=== PATIENT | male | born 1975 | race Caucasian/White ===

== ENCOUNTER 2025-02-23 09:35 | Day surgery (SDC) | payer BC ==
[2025-02-19 12:43] VITALS: BMI 31.3
[2025-02-23] MEDS: IV FLUID CONTINUATION 1,000 ML IV ONE (10:10)
[2025-02-23 10:16] VITALS: RESP 16; TEMP 97.4
[2025-02-23] MEDS ORDERED: LIDOCAINE 1% INJ 10MG/ML (20 ML MDV) ONE (10:45)
[2025-02-23] MEDS ORDERED: PROPOFOL 10 MG/ML 20 ML VIAL IV ONE (10:45)
--- NOTE | 2025-02-23 10:52 | P.GSHP ---
History of Present Illness H&P Date: 02/23/25 Chief Complaint: Colon cancer screening 42-year-old male here for colonoscopy. He has not had 1 previously. No bowel complaints. No family history of colon cancer. Past Medical History Past Medical History: No Reported History History of Any Multi-Drug Resistant Organisms: None Reported Past Surgical History: Orthopedic Surgery Additional Past Surgical History / Comment(s): R shoulder surgery, wisdom teeth Past Anesthesia/Blood Transfusion Reactions: No Reported Reaction Smoking Status: Never smoker - Past Family History Mother Family Medical History: Cancer Medications and Allergies Home Medications Medication Instructions Recorded Confirmed Type Fish Oil/Dha/Epa [Fish Oil 1,200 1 each PO DAILY 02/19/25 02/23/25 History mg Fish Oil] Fluticasone Nasal [place] [Flonase 2 spray EA NOSTRIL DAILY 02/19/25 02/23/25 History Nasal [place]] Loratadine [Claritin] 10 mg PO DAILY 02/19/25 02/23/25 History Multivitamins, Thera [Multivitamin 1 tab PO DAILY 02/19/25 02/23/25 History (formulary)] Omeprazole [PriLOSEC] 20 mg PO AC-BRKFST 02/19/25 02/23/25 History lisinopriL [Zestril] 20 mg PO DAILY 02/19/25 02/23/25 History Allergies Allergy/AdvReac Type Severity Reaction Status Date / Time No Known Allergies Allergy Verified 02/23/25 10:11 Surgical - Exam Vital Signs Temp Pulse Resp BP Pulse Ox 97.4 F L 85 16 132/89 99 02/23/25 10:13 02/23/25 10:13 02/23/25 10:13 02/23/25 10:13 02/23/25 10:13 Physical exam: General: Well-developed, well-nourished HEENT: Normocephalic, sclerae nonicteric Abdomen: Nontender, nondistended Extremities: No edema Neuro: Alert and oriented Assessment and Plan (1) Colon cancer screening Narrative/Plan: Will proceed with colonoscopy at this time. Current Visit: Yes Status: Acute Code(s): Z12.11 - ENCOUNTER FOR SCREENING FOR MALIGNANT NEOPLASM OF COLON SNOMED Code(s): 650985938
--- NOTE | 2025-02-23 11:04 | P.PCN ---
Date of Procedure: 02/23/25 Procedure(s) Performed: PREOPERATIVE DIAGNOSIS: Colon cancer screening POSTOPERATIVE DIAGNOSIS: Normal exam PROCEDURE: Colonoscopy ANESTHESIA: MAC SURGEON: Alberto Tamez M.D. SPECIMENS: None ENDOSCOPIC PROCEDURE: The patient was placed on the endoscopy table in the left decubitus position. The Olympus colonoscope was inserted into the anus and passed under direct visualization to the base of the cecum. The appendiceal orifice was visualized. From that point the scope was slowly withdrawn inspecti ng all surfaces carefully. There were no neoplastic inflammatory or polypoid lesions throughout the cecum, ascending, transverse, descending, sigmoid and rectum. There was no visible diverticulosis noted. Digital rectal examination was normal. The patient was taken to the recovery room in stable condition per anesthesia guidelines. RECOMMENDATIONS: Resume diet. Repeat colonoscopy 10 years.
[2025-02-23 11:33] VITALS: BP 123/78; PULSE 60
== END 2025-02-23 11:52 | disposition home or self-care (01) ==
LOC: ORWHC2ENDO 09:35
PROVIDERS: ATTEND Surgery
DX: Z12.11 Encounter for screening for malignant neoplasm of colon (principal)
CPT/HCPCS: 45378; J2003; J2704